=== PATIENT | female | born 1995 | race American Indian/Alaskan Native ===

== ENCOUNTER 2017-11-14 10:20 | Emergency (ER) | payer OTHER ==
[2017-11-14 10:46] VITALS: BMI 41.8
--- NOTE | 2017-11-14 14:12 | OBHP ---
Datetime: 11/14/2017 11:30 IP Adm Impression: , intrauterine ; No Active Labor; Intact Membranes IP Admit Plan: Observation/Evaluation Admit Comment, IP Provider: 22yo IUP unknown...came for lower abd discomfort (few days; irre g); No SROM; NoVB; +FM She was at last week fr allergic reaction in the ER and sent to L_D. She was given no meds. PNC: none - [facility] PMH: denies PSH: denies NKDA PSoH: denies smoking ETOH drugs POBH: x 1 Dr Hernandez; TOPx 1 PE In NAD Fundal height 39cm A: Unknown gestational age - size > dates No PNC Hx Rh neg (lookng at previous OB delivery at ) PLAN: sono dating; Rhogam and glucola Discussion with pt about plan. She undertsands. Obtian copies of lab work from Office yesterday Fasting glucose WNL Abdomen - PN: Normal Back - PN: Normal Lungs - PN: Normal Heart - PN: Normal Thyroid - PN: Normal Neurologic - PN: Normal HEENT - PN: Normal General - PN: Normal Presentation-Admit: Vertex FHR - Baseline A Provider: 130 Membranes, Provider: Intact Pool Provider: Negative IP Hx Assessment: No Care IP Chief Complaint: Other NICHD Variability Prov Fetus A: Moderate 6-25bpm NICHD Accel Fetus A IP Provider: 15X15 FHR Category Provider Fetus A: Category I NICHD Decel Fetus A IP Provider: None Genitourinary Exam: Normal
--- NOTE | 2017-11-14 17:07 | US ---
PROCEDURE: OB Pelvic Ultrasound HISTORY: dating and BPP - no care LMP: Uncertain of exact dates. COMPARISON: None available. FINDINGS: UTERUS: A single viable intrauterine gestation is identified within the endometrial cavity in cephalic lie with an anterior placenta with an average ultrasonic age of 34 weeks 4 days and cardiac activity of 134 beats per minute. No definite evidence to suggest placental abruption or previa. Anterior myometrium appears unremarkable however posterior myometrium is obscured by the fetus. The following mean biometry was obtained: Biparietal diameter 8.5 cm corresponds to 34 weeks 2 days. Head circumference 31.0 cm corresponds to 34 weeks 5 days. Abdominal circumference 30.7 cm corresponds to 34 weeks 5 days. Femur length 6.7 cm corresponds to 34 weeks 4 days. AC/AC ratio 1.01 which falls within the normal range. Amniotic fluid index measures 18.5 cm. Estimated weight 2465 g or 5 lb 7 oz. Estimated date of delivery 12/22/2017. anatomical survey can be attempted electively as clinically warranted. Current survey is limited due to late gestation. An indirect three-vessel umbilical cord is identified with an unremarkable appearing abdominal umbilical cord insertion. Urinary bladder is identified left-sided stomach is identified as well as bilateral kidneys. Complete survey not performed in this emergent examination. Biophysical profile: breathing 2. movements 2. tones 2. Amniotic fluid two. Total score = 8/8. CERVIX: Measures 5.2 cm. Long and closed. No cervical abnormality seen. RIGHT OVARY: None identified. LEFT OVARY: Not identified. FREE FLUID: None. OTHER FINDINGS: None. IMPRESSION: A single viable intrauterine gestation is identified in cephalic lie with an average ultrasonic age 34 weeks 4 days and cardiac activity of 134 beats per minute. No placental abruption or previa. Please see discussion above. Biophysical profile score 8/8.
[2017-11-14 22:54] VITALS: BP 113/63; PULSE 90; RESP 16; TEMP 97.8
== END 2017-11-14 17:30 | disposition home or self-care (01) ==
LOC: H.EROB2 10:20 → H.L&D 11:01 → H.EROB2 17:30
DX: O26.93 Pregnancy related conditions, unspecified, third trimester (principal); R10.2 Pelvic and perineal pain; Z3A.34 34 weeks gestation of pregnancy
CPT/HCPCS: 76818; 82947; 82948; 86850; 86900; 99284; J2792

== ENCOUNTER 2017-12-06 14:01 | Emergency (ER) | payer OTHER, MEDICAID ==
[2017-12-06 15:08] VITALS: BMI 47.0
--- NOTE | 2017-12-06 19:03 | US ---
EXAM: US Duplex Bilateral Lower Extremity Veins EXAM DATE/TIME: 12/06/2017 6:16 PM CLINICAL HISTORY: 22 years old, female; Pain; Leg, lower; Bilateral; Additional info: Leg pain TECHNIQUE: Real-time duplex ultrasound scan of the bilateral lower extremity veins integrating B-mode two-dimensional vascular structure, Doppler spectral analysis, color flow Doppler imaging and compression. COMPARISON: There are no prior studies for comparison. FINDINGS: Right deep veins: Common femoral, superficial femoral, popliteal and posterior tibial veins were evaluated. All veins examined are compressible. There are no intraluminal filling defects. There is expected blood flow on Doppler imaging. There is change in waveform with augmentation. Left deep veins: Common femoral, superficial femoral, popliteal and posterior tibial veins were evaluated. All veins examined are compressible. There are no intraluminal filling defects. There is expected blood flow on Doppler imaging. There is change in waveform with augmentation. Impression: No deep venous thrombosis in the visualized vascular segments of the lower extremities
--- NOTE | 2017-12-06 19:27 | OBHP ---
Datetime: 12/06/2017 15:00 IP Adm Impression: Term, intrauterine ; No Active Labor; Intact Membranes IP Admit Plan: Observation/Evaluation; Discharge home Admit Comment, IP Provider: 22 yo EGA 37.5 presents with lumbar pain, suprapubic cramps, ebonie ateral lower extremity pain. Lower extremity pain began 1 week ago and has been intermittent. Pt reports recently stopped worki ng to go on maternity leave and reports decreased ambulation. Today, reports pain at calf greater on R than Lt. Denies loss of funtion or sensation. Suprapubic cramps began approximately 2 days prior. Intermittent. rated at worse 8/10 and currentl y 4/10. ROS: Denies: dizziness, headache, blurred vision, CP/SOB/N/V/D/C, epigastric pain, dysuria PNC: Dr. Mathias; prescribed Iron 2/2 anemia obhx: 2017 Female 39 wk no complications; SAB 2016 D_C at 6 wks pmhx: none Famhx: DM, HTN, Cancer: Breast and lung soc: denies: smoking, etoh, illicit drugs surg: none NKDA Meds: PNV, Fe Gen: AAOx3, in no acute distress Cardiac: S1S2 no murmurs Lungs: CTA bilaterally Abdo: gravid, nontender, active bowel sounds CVA: nontender calf: nontender on palpation 22 yo IUP ega 37.5 -NST/FHT -Venous duplex of bilateral lower extremity -Monitor vitals and for SOB. case dw Dr. Azar Beaulieu MD PGY1 OB Hospitalist Addendum: Pt seen and examined by me. Agree w/ above. 22 yo at 37+ 5wks c /o 2 days of pelvic cramping. Pt reports that she had sex yesterday. Pt also c/o pain in calves x 1 week. VE: closed/ long/ high. Dopplers of lower extremity veins negative. NST reactive. Pt encou raged to drink more water. Pt discharged home, has a f/u appointment w/ Dr. Mathias on Fri., 12/08/2017. (ES) Pelvic Type - PN: Adequate Extremities - PN: Normal Abdomen - PN: Normal Back - PN: Normal Breast - PN: Not Done Lungs - PN: Normal Heart - PN: Normal Thyroid - PN: Not Done Neurologic - PN: Normal HEENT - PN: Normal General - PN: Normal FHR - Baseline A Provider: 130 Contraction Comments Provider: irritability EGA AdmitDate IP: 37.5 Vital Signs Provider: Reviewed; Within Normal Limits IP Chief Complaint: Maternal discomfort NICHD Variability Prov Fetus A: Moderate 6-25bpm NICHD Accel Fetus A IP Provider: [id number] FHR Category Provider Fetus A: Category I NICHD Decel Fetus A IP Provider: None Dilatation, Provider: 0 Effacement, Provider: long Station, Provider: -3 Genitourinary Exam: Normal DTRs - PN: Normal
[2017-12-06 23:35] VITALS: BP 106/52; PULSE 86; RESP 18; TEMP 98.1
== END 2017-12-06 19:18 | disposition home or self-care (01) ==
LOC: H.EROB2 14:01
DX: O26.893 Other specified pregnancy related conditions, third trimester (principal); Z3A.37 37 weeks gestation of pregnancy; M79.662 Pain in left lower leg; M79.661 Pain in right lower leg; R10.2 Pelvic and perineal pain

== ENCOUNTER 2017-12-18 04:45 | Inpatient (IN) | payer MEDICAID, OTHER ==
[2017-12-18 05:53] VITALS: BMI 43.9
[2017-12-18 06:43] LABS: BASO % 0.4 % (0.0-2.0); EOS # 0.1 K/uL (0.0-0.7); EOS % 1.1 % (0.0-4.0); HEMOGLOBIN 10.2 g/dL (12.0-16.0); LYMPH # 2.5 K/uL (1.0-4.3); LYMPH % 21.3 % (20.0-40.0); MEAN CELL VOLUME 68.6 fl (81.0-99.0); MEAN CORPUSCULAR HEMOGLOBIN 22.9 pg (27.0-31.0); MEAN CORPUSCULAR HGB CONC 33.4 g/dL (33.0-37.0); MEAN PLATELET VOLUME 7.9 fl (7.2-11.7); MONO # 1.1 K/uL (0.0-0.8); MONO % 9.2 % (0.0-10.0); NRBC % 0.1 % (0.0-0.0); RBC 4.44 Mil/uL (3.80-5.20); RED CELL DISTRIBUTION WIDTH 16.7 % (11.5-14.5); WHITE BLOOD COUNT 11.8 K/uL (4.8-10.8)
[2017-12-18] MEDS: Lactated Ringer's 1,000 ML IV SCH ×4 (07:40→17:30)
[2017-12-18] MEDS ORDERED: Oxytocin 30 units/LR 500ML 30 UNITS/500 ML BAG IV ONE (07:58)
--- NOTE | 2017-12-18 08:33 | OBPN ---
Datetime: 12/18/2017 07:40 IP Progress Impression: Normal progression of labor; Reassuring heart rate IP Informed Consent Obtain: Vaginal Delivery; Risks, Benefits and Alternatives Discussed IP Progress Plan: Augmentation; Anticipate Vaginal Delivery Pool Provider: Negative Membranes, Provider: Intact Contraction Comments Provider: occ FHR - Baseline A Provider: 125 Presentation-Admit: Vertex IP Progress Note Comment: She feels more CTX pain. A: Term in early labor PLAN: Discussion about pain management, labor, augmentation, delivery and ...agreed to Antwon fernandez NICHD Accel Fetus A IP Provider: 15X15 FHR Category Provider Fetus A: Category I NICHD Variability Prov Fetus A: Moderate 6-25bpm Dilatation, Provider: 3-4 Effacement, Provider: 75 Station, Provider: -2 NICHD Decel Fetus A IP Provider: None Datetime: 12/18/2017 05:51 Gestation - Est Wks by US: 39.0 Vital Signs Provider: Reviewed; Within Normal Limits
--- NOTE | 2017-12-18 08:35 | OBADHP ---
Datetime: 12/18/2017 07:40 Presentation-Admit: Vertex FHR - Baseline A Provider: 125 Membranes, Provider: Intact Contraction Comments Provider: occ Pool Provider: Negative NICHD Variability Prov Fetus A: Moderate 6-25bpm NICHD Accel Fetus A IP Provider: [id number] FHR Category Provider Fetus A: Category I NICHD Decel Fetus A IP Provider: None Dilatation, Provider: 3-4 Effacement, Provider: 75 Station, Provider: -2 Datetime: 12/18/2017 05:51 IP Adm Impression Other: Latnet phase o flabor/painful CTX Admit Comment, IP Provider: FRANCISCO:12/22/2017 LMP: PNP: Dr. Mathias 22 y/o at 39 wks with FRANCISCO of 12/22/2017 is presenting with c/o contractions occurring every 4-5 min, which she states began 12/15/2017 and became more frequent last night at 6pm. Patient rates p ain as 12/16. Patient reports movement within past 5 minutes. Last sexual activity was 12/15/2017. She denied any vaginal bleeding or loss of fluid. Patient had late care bc she became aware of at 34 weeks. OBGYNhx: 1 - 2017 1 - 2016 PMH: none Famhx: mom _ dad- HTN Sochx: no tobacco, EtoH or drugs Allergies: none Meds: , iron ROS: denies dizziness, headache, blurry cision, cp, sob, n/v/d, dysuria PE: obese female laying supine Cardio: s1s2, no murmurs Resp: lungs clear to auscultation Abd: BS+ Vacm dilated, 70% effaced _ -2 station Ext: calf nontender A/P:22 y/o at 39 wks with FRANCISCO of 12/22/2017 Early labor/painful CTX/late PNC Rh neg PLAN: Admit to L_D Pain management, labor, delivery, meds, discussed...she would like to start with Nitrou s Abdomen - PN: Normal Back - PN: Normal Heart - PN: Normal General - PN: Normal Gestation - Est Wks by US: 39.0 IP Hx Assessment: The History has been Reviewed and is Current Vital Signs Provider: Reviewed; Within Normal Limits IP Chief Complaint: Uterine contractions; Maternal discomfort EGA AdmitDate IP: 39.3 IP Adm Impression: Term, intrauterine ; Intact Membranes IP Admit Plan: Admit to unit Datetime: 12/06/2017 15:00 Pelvic Type - PN: Adequate Extremities - PN: Normal Breast - PN: Not Done Lungs - PN: Normal Thyroid - PN: Not Done Neurologic - PN: Normal HEENT - PN: Normal Genitourinary Exam: Normal DTRs - PN: Normal
[2017-12-18] MEDS ORDERED: Fentanyl/Bupivacaine HCl 250 ML EPI ONE (21:00)
[2017-12-19] MEDS: Lactated Ringer's 1,000 ML IV SCH ×2 (02:30→08:30)
[2017-12-19] MEDS ORDERED: Bupivacaine 0.25% Inj(30mL) IJ ONE (02:45)
[2017-12-19] MEDS ORDERED: Bupivacaine HCl 0.25% PF (30 ml) Inj IJ ONE (02:45)
[2017-12-19] MEDS ORDERED: Lidocaine 1% Inj (20ml) ONE (06:39)
[2017-12-19] MEDS ORDERED: Oxytocin 30 units/LR 500ML 30 U/500 ML BAG IV ONE (06:58)
[2017-12-19] MEDS ORDERED: Oxycodone/Acetaminophen 5/325 mg Tab PO PRN ×2 (07:36→12:30)
[2017-12-19] MEDS ORDERED: Benzocaine/Menthol SPRAY TOP PRN ×2 (07:36→12:30)
--- NOTE | 2017-12-19 08:20 | OBDS ---
DELIVERY PERSONNEL Delivery Doctor: Anival Jackson MD Supervisor Finishing Department: Carlota Hannah RN Resident: Helga Rios MD MATERNAL INFORMATION Delivery Anesthesia: Local Medications in Delivery: pitocin Maternal Complications: None RN Comments: Atraumatic of Viable baby boy with Lusty cry. skin to skin Provider Comments: Normal spontaneous vaginal delivery. Patient delivered viable male with Ap gars of 9 and 9 at one and 5 minutes respectively. Infant delivered via LOP position. Placenta delive red spontaneously. Laceration repaired, as above. Uterus firm and appropriately hemostatic following delivery. Patient tolerated delivery and repair well. No complications. Estimated loss 300 mL. LABOR SUMMARY EDC: 12/22/2017 00:00 No. Babies in Womb: 1 Attempted: No Labor Anesthesia: Epidural LABOR INFORMATION Steroids Given: None Reason Steroids Not Administered: Not Applicable MEMBRANES Membranes Rupture Method: Spontaneous Rupture of Membranes: 12/18/2017 19:15 Length of Rupture (hrs): 12.15 Amniotic Fluid Color: Clear Amniotic Fluid Amount: Moderate Amniotic Fluid Odor: Normal VAGINAL DELIVERY Laceration Extension: First Degree (Annotations: Data stored by [facility] on behalf of user) Laceration Type: Perineal Laceration Repair Note: First-degree midline peroneal laceration. Area infiltrated with 1% lidocaine . Laceration repaired with 2. 0 repeat without complication. Patient tolerated well. BABY A INFORMATION Delivery Date/Time: 12/19/2017 07:24 Method of Delivery: Vaginal Born in Route : No : N/A Forceps: Outlet Vacuum Extraction: N/A Shoulder Dystocia : No SHOULDER DYSTOCIA BABY A Delivery Date/Time: 12/19/2017 07:24 PRESENTATION/POSITION BABY A Presentation: Cephalic Cephalic Presentation: Vertex Vertex Position: Right Occipital Posterior Breech Presentation: N/A SCORES BABY A Heart Rate 1 min: >100 bpm Resp Effort 1 min: Good Cry Reflex Irritability 1 min: Cough or Sneeze or Pulls Away Muscle Tone 1 min: Active Motion Color 1 min: Body Clarks Green, Extremities Blue Resuscitation Effort 1 min: N/A SCORE 1 MIN: 9 Heart Rate 5 min: >100 bpm Resp Effort 5 min: Good Cry Reflex Irritability 5 min: Cough or Sneeze or Pulls Away Muscle Tone 5 min: Active Motion Color 5 min: Body Clarks Green, Extremities Blue Resuscitation Effort 5 min: N/A SCORE 5 MIN: 9 INFORMATION BABY A Gestational Age at Delivery: 39.0 Gestational Status: Term Infant Outcome : Liveborn Infant Condition : Stable Infant Sex: Male IDENTIFICATION/MEDS BABY A ID Band Number: [id number] ID Band Location: Right Leg; Right Arm CORD INFORMATION BABY A No. Cord Vessels: 3 Nuchal Cord : N/A Suction: Mouth; Nose
[2017-12-20 07:16] LABS: BASO # 0.1 K/uL (0.0-0.2); BASO % 0.3 % (0.0-2.0); EOS # 0.2 K/uL (0.0-0.7); EOS % 1.1 % (0.0-4.0); HEMOGLOBIN 9.3 g/dL (12.0-16.0); LYMPH # 2.6 K/uL (1.0-4.3); LYMPH % 15.3 % (20.0-40.0); MEAN CELL VOLUME 69.3 fl (81.0-99.0); MEAN CORPUSCULAR HEMOGLOBIN 22.8 pg (27.0-31.0); MEAN CORPUSCULAR HGB CONC 32.9 g/dL (33.0-37.0); MEAN PLATELET VOLUME 7.8 fl (7.2-11.7); MONO # 1.4 K/uL (0.0-0.8); NEUT % 75.3 % (50.0-75.0); RBC 4.08 Mil/uL (3.80-5.20); RED CELL DISTRIBUTION WIDTH 16.6 % (11.5-14.5); WHITE BLOOD COUNT 17.3 K/uL (4.8-10.8)
--- NOTE | 2017-12-20 09:07 | OBPPN ---
Datetime: 12/20/2017 09:05 PP Pain Prov: Within normal limits PP Nausea Prov: Denies PP Flatus Prov: Yes PP Breasts Prov: Normal PP Heart Prov: Normal PP Lungs Prov: Normal PP Abdomen/Uterus Prov: Normal PP Lochia Prov: Normal PP Vulva/Perineum Prov: Normal PP CVA Tenderness Prov: Normal PP Extremities Prov: Normal PP Progress Prov: Normal PP Comments Phys Exam Prov: Abd: Soft, NT, BS- present UT - Firm PP Impression Prov: Normal progression PP Plan Prov: Continue present management PP Progress Note Prov: S/P , Clinically Stable. Plan: Continue care. Vital Signs Provider PP: Reviewed
--- NOTE | 2017-12-21 07:19 | OBPPN ---
Datetime: 12/21/2017 07:10 PP Pain Prov: Within normal limits PP Nausea Prov: Denies PP Flatus Prov: Yes PP Breasts Prov: Normal PP Heart Prov: Normal PP Lungs Prov: Normal PP Abdomen/Uterus Prov: Normal PP Lochia Prov: Normal PP Vulva/Perineum Prov: Normal PP CVA Tenderness Prov: Normal PP Extremities Prov: Normal PP Progress Prov: Normal PP Comments Phys Exam Prov: Abd: Soft, NT, BS- present UT- Firm PP Impression Prov: Normal progression PP Plan Prov: Discharge PP Impression Other Prov: S/P PP Progress Note Prov: Patient Reports feeling well. Ambulating, tolerating po and reports adequate pain control. Denies Vaginal bleeding and soreness. O: BP-122/66, HR- 69 Chest: CTA B/L Abdomen - Soft, NT, BS Present UT- Firm, below umbilicus Lochia- Minimal Assessment: S/P , PPD #2 Clinically Stable. Plan: D/c Home. F/U in 6 weeks for check. IP PP Procedures: Rhogam Vital Signs Provider PP: Reviewed
--- NOTE | 2017-12-21 07:22 | OBDCSUM ---
Datetime: 12/21/2017 07:19 Discharged to, Provider: Home Follow up at, Provider: Dr Mathias Disch Instr Activity: Normal activity Disch Instr Diet: Regular Discharge Instructions, Provider: Routine instructions given Discharge Diagnosis, Provider: Term Delivered Discharge Time: 12/21/2017 07:19 Follow up in weeks, Provider: 6 weeks Disch Referrals: None Contraception discussed, Prov: Yes Discharge Comment, Provider: S/P , CLinically Stable Discharge Diagnosis Prov Other: S/P , CLinically Stable
[2017-12-21 20:31] VITALS: BP 102/46; PULSE 61; RESP 19; TEMP 97.8; O2SAT 99
== END 2017-12-21 16:20 | disposition home or self-care (01) | DRG 373 ==
LOC: H.EROB2 04:45 → H.L&D 05:36 → H.OB/GYN 12-19 10:29
PROVIDERS: ADMIT Obstetrics & Gynecology; ATTEND Obstetrics & Gynecology
PROC: 0HQ9XZZ Repair Perineum Skin, External Approach (ICD-10-PCS; principal; 2017-12-18)
PROC: 10E0XZZ Delivery of Products of Conception, External Approach (ICD-10-PCS; 2017-12-18)
PROC: 4A1HXCZ Monitoring of Products of Conception, Cardiac Rate, External Approach (ICD-10-PCS; 2017-12-18)
DX: O70.0 First degree perineal laceration during delivery (principal); Z37.0 Single live birth; Z3A.39 39 weeks gestation of pregnancy; Z82.49 Family history of ischemic heart disease and other diseases of the circulatory system